=== PATIENT | female | born 1960 | race Caucasian/White ===

== ENCOUNTER 2024-08-02 11:27 | Emergency (ER) | payer BC, SELFPAY ==
[2024-08-02] VITALS (19 sets, daily range): BP systolic 140–170; BP diastolic 80–112; PULSE 113–135; TEMP 37; O2SAT 95–98; BMI 28.9
[2024-08-02 12:03] LABS: Basophils Absolute Auto 0.1 10^3/uL (0.0-0.1); Basophils Percent Auto 0.3 % (0.2-2.0); Hematocrit 46.2 % (36.0-48.0); Hemoglobin 16.5 g/dL (12.0-16.0); Immature Granulocytes Abs Auto 0.18 10^3/uL (0.00-0.03); Immature Granulocytes Pct Auto 0.9 % (0.0-0.5); Lymphocytes Absolute Auto 1.5 10^3/uL (1.2-3.8); Lymphocytes Percent Auto 7.7 % (20.5-60.0); Mean Corpuscular HGB Conc 35.7 g/dL (29.9-35.2); Mean Corpuscular Volume 89.5 fL (81.0-99.0); Mean Platelet Volume 10.2 fL (9.5-13.5); Monocytes Absolute Auto 0.9 10^3/uL (0.3-0.8); Monocytes Percent Auto 4.3 % (1.7-12.0); Neutrophils Absolute Auto 17.2 10^3/uL (1.4-6.5); Neutrophils Percent Auto 86.8 % (43.0-75.0); Platelet Count 280 10^3/uL (150-450); Red Blood Count 5.16 10^6/uL (4.20-5.40); Red Cell Distribution Width 11.9 % (11.0-15.0); White Blood Count 19.8 10^3/uL (4.0-11.0)
[2024-08-02] MEDS: 0.9 % SODIUM CHLORIDE 1,000 ML 999 ML IV (12:07)
[2024-08-02] MEDS: ONDANSETRON PF 4 MG/2 ML VIAL IV (12:08)
[2024-08-02] MEDS: FAMOTIDINE/PF 20 MG/2 ML VIAL IV (12:08)
--- NOTE | 2024-08-02 12:11 | ED.GENADUL1 ---
HPI HPI - General Adult General Chief complaint: Nausea/Vomiting/Diarrhea Stated complaint: VOMITING, DIAHRREA, NAUSEA Time Seen by Provider: 08/02/24 11:48 Source: patient Mode of arrival: Wheelchair Limitations: no limitations History of Present Illness HPI narrative: Patient is a 64-year-old female who is presenting to the ER today with intractable nausea, vomiting, midepigastric pain. Patient has a history of gastroparesis. Patient's symptom started Friday evening. Patient has not had any of her medication yesterday or this morning. Patient typically takes 2 hydrocodone daily for chronic neck and back pain. Patient has not had any of her pain medication and 2 days, stating that she does feel like she is slightly going from withdrawal from not having the medication. Patient's heart rates in the 120s. Patient has not taken her blood pressure medication yesterday or today. Patient has no significant chest pain or tightness, no shortness of breath. Patient does have acute on chronic headache, mild. Patient states she normally has headaches. Patient's headache was not the worse headache of her life, not sudden onset, not thunderclap in nature. No recent traveling, no new antibiotic use recently. No sick contacts. Patient stated that she has something similar to this over a year ago, and patient was admitted to the hospital for 3 to 4 days for IV fluids, antibiotics, and went home and nobody ever found any source of infection. Patient believes this is exacerbation of her gastroparesis. All systems are negative except as noted/marked. All systems reviewed and otherwise negative. Nurses note and vital signs reviewed and patient is not hypoxic. General: The patient moderate distress secondary intractable nausea, vomiting, dehydration, tachycardia. Patient is resting uncomfortably on cart. Patient is not toxic, lethargic, or listless Skin: Warm, dry, no pallor noted. There is no rash noted. No petechiae, purpura. Head: Normocephalic, atraumatic Eye: Normal conjunctiva, no drainage, EOMI. PERRL Ears, Nose, Mouth, and Throat: oral mucosa is dry. Nares patent. Mouth without vesicles. Cardiovascular: Regular Rate and Rhythm, no murmur, gallop, rub Respiratory: Patient is in no distress, no accessory muscle use, lungs are clear to auscultation, no wheezing, rales or rhonchi Back: non-tender, no CVA tenderness bilaterally to percussion. No CT LS midline pain GI: Patient has moderate midepigastric tenderness to palpation, obese, soft, no peritoneal signs, no flank pain bilateral, no surgical abdomen signs or symptoms, otherwise no tenderness to palpation, no masses appreciated. No rebound, guarding, or rigidity noted. No distention Musculoskeletal: Patient has full range of motion of all of the extremities, no motor, sensory, or focal neurological deficits Neurological: A&O x4, normal speech Psychiatric: Cooperative Related Data Home Medications ?Medication ?Instructions ?Recorded ?Confirmed aspirin 81 mg capsule 81 mg PO DAILY 08/02/24 08/02/24 duloxetine 30 mg capsule,delayed 30 mg PO DAILY 08/02/24 08/02/24 release gabapentin 300 mg capsule 600 mg PO .at night 08/02/24 08/02/24 hydrocodone 5 mg-acetaminophen 325 1 tab PO Q4H PRN pain 08/02/24 08/02/24 mg tablet insulin aspart U-100 100 unit/mL 08/02/24 subcutaneous solution (Novolog U-100 Insulin aspart) lisinopril 10 mg tablet 10 mg PO DAILY 08/02/24 08/02/24 lorazepam 0.5 mg tablet 0.5 mg PO DAILY PRN anxiety 08/02/24 08/02/24 metoclopramide HCl 10 mg tablet 10 mg PO Q6H PRN nausea and 08/02/24 08/02/24 vomiting metoprolol succinate 25 mg 25 mg PO DAILY 08/02/24 08/02/24 tablet,extended release 24 hr promethazine 25 mg tablet 25 mg PO Q6H PRN nausea and 08/02/24 08/02/24 vomiting Allergies Allergy/AdvReac Type Severity Reaction Status Date / Time aspirin Allergy Mild bleed Verified 08/02/24 11:34 NSAIDS (Non-Steroidal Allergy Mild bleed Verified 08/02/24 11:34 Anti-Inflamma Opioid HPI Opioid Management Most Recent Opioid Data: Last Pain Scale 6 08/02/24 14:36 Last MAR Pain Assessment 08/02/24 14:36 [facility] Medical History (Updated 08/02/24 @ 14:33 by Humberto Manrique MD) Gastroparesis ?K31.84 - Gastroparesis (ICD-10) Diabetes ?E11.9 - Type 2 diabetes mellitus without complications (ICD-10) Diverticulitis ?K57.92 - Diverticulitis of intestine, part unspecified, without perforation or abscess without bleeding (ICD-10) Social History Little interest or pleasure in doing things: not at all Feeling down, depressed, or hopeless: not at all Exam Constitutional Vital Signs, click to edit/add: Last Vital Signs Temp 98.6 F 08/02/24 11:34 Pulse 120 H 08/02/24 15:01 Resp 17 08/02/24 15:01 BP 162/83 H 08/02/24 15:01 Pulse Ox 96 08/02/24 14:30 O2 Del Method Room Air 08/02/24 11:34 Course Vital Signs Vital signs: Vital Signs Temperature 98.6 F 08/02/24 11:34 Pulse Rate 135 H 08/02/24 11:34 Respiratory Rate 22 H 08/02/24 11:34 Blood Pressure 160/80 H 08/02/24 11:34 Pulse Oximetry 98 08/02/24 11:34 Oxygen Delivery Method Room Air 08/02/24 11:34 Temperature 98.6 F 08/02/24 11:34 Pulse Rate 120 H 08/02/24 15:01 Respiratory Rate 17 08/02/24 15:01 Blood Pressure 162/83 H 08/02/24 15:01 Pulse Oximetry 96 08/02/24 14:30 Oxygen Delivery Method Room Air 08/02/24 11:34 Medical Decision Making MDM Narrative Medical decision making narrative: Patient does have lactic acid that is elevated, patient also has white blood cell count of 19. Patient has been tachycardic. Patient has been given IV fluids. Patient has not taken any of her medication in the past 2 days. Patient was given a dose of Lopressor 5 mg that did help lower her heart rate. Patient has had no medication yesterday or today and missed her Friday evening medication as well. Patient is on blood pressure medication along with several other medications, please see her medication list. 1420 I had a lengthy discussion with patient and . Patient does feel better, her nausea has improved. Is still there slightly but much better. Patient also midepigastric pain is almost resolved. Patient's abdomen was reassessed, the abdomen is soft, no peritoneal signs, no lower quadrant abdominal tenderness to palpation, no flank pain. Patient has mild tenderness palpation to the midepigastric area. Abdomen is soft, nonsurgical, no significant pain. Patient headache states is typically there. Patient relates her headaches secondary to chronic cervical pain. Patient does take 2 hydrocodone every day. Patient has not had her hydrocodone yesterday or today, patient knows that her body is dependent on this and admittedly states that yes and going through some withdrawal from my opiate medication on top of what she believes is gastroparesis. I did discuss her sepsis parameters of tachycardia, lactic acid, leukocytosis. Patient stated she had the same thing happen to her in the past where she met sepsis parameters, was in the hospital for several days with IV fluids, IV antibiotics, and then went home. Patient states she feels the same way today, does not feel that she is sick. Patient is not in DKA. She is not acidotic with her venous gas or bicarb from her metabolic panel. Patient believes that she is still dehydrated, patient will be given a third liter of IV fluid. Patient is given morphine to help with pain and withdrawal, along with clonidine to help with withdrawal symptoms as well. Shared decision making was done. Patient agrees with this plan, we will reassess patient in another hour to see if her symptoms have improved, patient has told me that she wants to go home. 1530 I had another shared decision-making discussion with the patient and at bedside. Patient has received 3 L of IV fluid. Patient states that she feels significantly better than when she came into the ER, just feels fatigued at this time. She no longer has midepigastric pain, no abdominal pain, no nausea. Patient states her headache is slightly better but she typically has headaches, this is not different today. We had discussed her elevated white blood cells, lactic acid, and heart rate that does trigger sepsis measures for admission. We also discussed with CO2 normal, venous blood gas pH is normal, and that she is not in DKA. Patient wants to go home. Patient states that she can come back if needed. Patient understands recommendation to be very safe to stay overnight, but patient would rather go home. Patient has Zofran and Phenergan tablets at home. Patient will be given Phenergan suppository refill which she has had at home previously. Patient will continue increase fluids at home. Patient has a functional decision-making capacity to decide to be discharged and not admitted. Patient understands that she may return at any time for any other acute concerns. Critical care time 35 minutes exclusive from separate billable procedures that were performed. The following was considered in the determination of critical care but not limited to the level of medical decision making, intensive cardiac and/or respiratory monitoring, frequent vital sign monitoring, evaluation of laboratory studies, evaluation of radiographic studies, oxygen monitoring, and constant monitoring and speaking to family at bedside Lab Data Lab results reviewed: Yes I reviewed the patient's lab results Labs: Lab Results 08/02/24 08/02/24 Range/Units 11:50 12:20 WBC 19.8 H (4.0-11.0) 10^3/uL RBC 5.16 (4.20-5.40) 10^6/uL Hgb 16.5 H (12.0-16.0) g/dL Hct 46.2 (36.0-48.0) % MCV 89.5 (81.0-99.0) fL MCH 32.0 (26.7-34.0) pg MCHC 35.7 H (29.9-35.2) g/dL RDW 11.9 (11.0-15.0) % Plt Count 280 (150-450) 10^3/uL MPV 10.2 (9.5-13.5) fL Neut % (Auto) 86.8 H (43.0-75.0) % Lymph % (Auto) 7.7 L (20.5-60.0) % [place] % (Auto) 4.3 (1.7-12.0) % Eos % (Auto) 0.0 L (0.9-7.0) % Baso % (Auto) 0.3 (0.2-2.0) % Neut # (Auto) 17.2 H (1.4-6.5) 10^3/uL Lymph # (Auto) 1.5 (1.2-3.8) 10^3/uL [place] # (Auto) 0.9 H (0.3-0.8) 10^3/uL Eos # (Auto) 0.0 (0.0-0.7) 10^3/uL Baso # (Auto) 0.1 (0.0-0.1) 10^3/uL Abs Immat Gran (auto) 0.18 H (0.00-0.03) 10^3/uL Imm/Tot Granulo (auto) 0.9 H (0.0-0.5) % VBG pH 7.480 H (7.330-7.430) VBG pCO2 31.9 L (40.0-52.0) mmHg Sodium 138 (136-145) mmol/L Potassium 3.6 (3.5-5.1) mmol/L Chloride 99 (98-107) mmol/L Carbon Dioxide 24.3 (21.0-32.0) mmol/L Anion Gap 18.3 BUN 16.0 (7.0-18.0) mg/dL Creatinine 0.94 (0.55-1.02) mg/dL Est GFR ( Amer) >60 (>=60) Est GFR (Non-Af Amer) >60 (>=60) BUN/Creatinine Ratio 17.0 Glucose 308 H (74-106) mg/dL Lactate 2.6 H* (0.4-2.0) mmol/L Calcium 10.0 (8.5-10.1) mg/dL Total Bilirubin 1.2 H (0.2-1.0) mg/dL Direct Bilirubin 0.2 (0.0-0.2) mg/dL AST 21 (15-37) U/L ALT 32 (14-59) U/L Alkaline Phosphatase 66 (46-116) U/L Troponin I High Sens 41.5 (4.0-51.3) pg/mL Total Protein 8.6 H (6.4-8.2) g/dL Albumin 4.1 (3.4-5.0) g/dL Globulin 4.5 g/dL Albumin/Globulin Ratio 0.9 Lipase 19.0 (16.0-77.0) U/L ECG Data Attestation: I personally reviewed and interpreted this ECG as follows: (EKG interpretation. Sinus tachycardia 122. Left axis deviation. No acute ST elevation, no acute ectopy. QTc of 396) Discharge Plan Discharge Chief Complaint: Nausea/Vomiting/Diarrhea Clinical Impression: Dehydration, Nausea & vomiting, Headache Prescriptions / Home Meds: No Action hydrocodone-acetaminophen 5-325 mg tablet 1 tab PO Q4H PRN (Reason: pain) lorazepam 0.5 mg tablet 0.5 mg PO DAILY PRN (Reason: anxiety) insulin aspart U-100 [Novolog U-100 Insulin aspart] 100 unit/mL solution lisinopril 10 mg tablet 10 mg PO DAILY promethazine 25 mg tablet 25 mg PO Q6H PRN (Reason: nausea and vomiting) gabapentin 300 mg capsule 600 mg PO .at night metoprolol succinate 25 mg tablet extended release 24 hr 25 mg PO DAILY metoclopramide HCl 10 mg tablet 10 mg PO Q6H PRN (Reason: nausea and vomiting) duloxetine 30 mg capsule,delayed release(DR/EC) 30 mg PO DAILY aspirin 81 mg capsule 81 mg PO DAILY Print Language: German Referrals: Ernst Lewis MD [Primary Care Provider] - 1 week
[2024-08-02 12:28] LABS: Alanine Aminotransferase 32 U/L (14-59); Albumin Globulin Ratio 0.9; Albumin Level 4.1 g/dL (3.4-5.0); Alkaline Phosphatase 66 U/L (46-116); Aspartate Amino Transferase 21 U/L (15-37); Bilirubin Direct 0.2 mg/dL (0.0-0.2); Bilirubin Total 1.2 mg/dL (0.2-1.0); Chloride 99 mmol/L (98-107); Estimated GFR (African America >60 (>=60); Estimated GFR (Non-African Ame >60 (>=60); Globulin 4.5 g/dL; Glucose 308 mg/dL (74-106); Potassium 3.6 mmol/L (3.5-5.1); Sodium 138 mmol/L (136-145); Total Protein 8.6 g/dL (6.4-8.2); Troponin I High Sensitivity 41.5 pg/mL (4.0-51.3)
[2024-08-02 12:32] LABS: Anion Gap 18.3; Carbon Dioxide 24.3 mmol/L (21.0-32.0)
[2024-08-02 12:33] LABS: Lactate/Lactic Acid 2.6 mmol/L (0.4-2.0)
[2024-08-02 12:43] LABS: PCO2 VBG 31.9 mmHg (40.0-52.0)
[2024-08-02] MEDS: METOPROLOL TARTRATE 5 MG/5 ML VIAL IVP (12:48)
[2024-08-02] MEDS: ACETAMINOPHEN 500 MG TABLET PO (13:06)
[2024-08-02] MEDS: PROMETHAZINE HCL 25 MG/ML VIAL IM (13:07)
[2024-08-02] MEDS: LORAZEPAM 2 MG/ML VIAL 0.5 MG IV (13:07)
[2024-08-02] MEDS: 0.9 % SODIUM CHLORIDE 1,000 ML 1000 ML IV ×2 (13:07→14:36)
[2024-08-02] MEDS: CLONIDINE HCL 0.1 MG TABLET PO (14:36)
[2024-08-02] MEDS: MORPHINE SULFATE 2 MG/ML SYRINGE 1 MG IV (14:36)
--- NOTE | 2024-08-02 16:20 | ECG_ITS ---
[facility] Test Date: 2024-08-02 Pat Name: DONNELL ZARCO Department: Room: - Gender: Female [employer]: : 1960 Requested By: Order Number: [id number] Reading MD: JANE ALVARADO Measurements Intervals [place] Rate: 122 P: 90 NC: 144 QRS: -45 QRSD: 90 T: 58 QT: 324 QTc: 396 Interpretive Statements 1120 Sinus tachycardia 2630 Left anterior fascicular block 9150 abnormal ECG Compared to ECG 11/15/2022 14:14:24 Left anterior fascicular block now present Electronically Signed On 08-02-2024 23:11:32 EDT by JANE ALVARADO
== END 2024-08-02 16:14 | disposition home or self-care (01) ==
PROVIDERS: Emergency Provider Emergency Medicine
DX: R11.2 Nausea with vomiting, unspecified (principal); R51.9 Headache, unspecified; E86.0 Dehydration; E66.9 Obesity, unspecified; Z68.28 Body mass index [BMI] 28.0-28.9, adult
CPT/HCPCS: 36415; 80053; 80076; 82800; 83605; 83690; 84484; 85025; 93005; 96361; 96372; 96374; 96375; 99284; J2060; J2250; J2270; J2405